=== PATIENT | female | born 1950 | race Caucasian/White ===

== ENCOUNTER 2020-09-01 09:30 | Outpatient (REF) | payer MEDICARE, SELFPAY | END 2020-09-01 09:31 | disposition home or self-care (01) | LOC: HO.LAB 09:30 | PROVIDERS: Visit Provider Internal Medicine | DX: Z20.828 Contact with and (suspected) exposure to other viral communicable diseases (principal) | CPT/HCPCS: 87635 ==

== ENCOUNTER 2020-09-11 07:40 | Outpatient (REF) | payer MEDICARE, SELFPAY ==
[2020-09-11 07:59] LABS: MANUAL DIFF FLAG NO
[2020-09-11 08:01] LABS: Basophils Absolute Auto 0.1 X10*3/uL (0.0-0.2); Basophils Percent Auto 0.7 % (0-2); Eosinophils Absolute Auto 0.1 X10*3/uL (0.0-0.4); Eosinophils Percent Auto 1.4 % (0-4); Hematocrit 39.7 % (37-47); Hemoglobin 12.5 g/dl (12.0-16.0); Imm Gran Abs Auto 0.02 X10*3/uL (0.00-0.03); Imm Gran Pct Auto 0.3 % (0.0-0.4); Lymphocytes Absolute Auto 2.6 X10*3/uL (1.2-4.9); Lymphocytes Percent Auto 35.1 % (20-40); Mean Corpuscular HGB Conc 31.5 g/dl (31.0-35.0); Mean Corpuscular Hemoglobin 27.2 pg (27.0-33.0); Mean Corpuscular Volume 86.3 fL (80-98); Mean Platelet Volume 11.5 fL (9.4-12.3); Monocytes Absolute Auto 0.5 X10*3/uL (0.1-1.2); Monocytes Percent Auto 6.3 % (2-11); Neutrophils Absolute Auto 4.1 X10*3/uL (2.0-8.3); Neutrophils Percent Auto 56.2 % (45-73); Platelet Count 170 X10*3/uL (160-400); Red Cell Distribution Width 12.6 % (11.0-16.0); White Blood Count 7.3 X10*3/uL (4.8-10.8)
[2020-09-11 08:16] LABS: Estimated Average Glucose 117 mg/dL; Hemoglobin A1c % 5.7 %
[2020-09-11 08:32] LABS: Alanine Aminotransferase 38 U/L (0-31); Albumin Level 4.4 g/dL (3.5-5.0); Alkaline Phosphatase 69 U/L (39-117); Anion Gap 15 (12-20); Aspartate Amino Transferase 25 U/L (5-31); Blood Urea Nitrogen 15 mg/dL (9-16); Calcium 8.8 mg/dL (8.4-10.2); Carbon Dioxide 28 mmol/L (22-29); Chloride 102 mmol/L (96-108); Cholesterol 186 mg/dL; Estimated Glomerular Filt Rate > 60; Glucose Fasting 105 mg/dL (60-99); HDL Cholesterol 58 mg/dL; LDL Cholesterol Calculated 105 mg/dl; Sodium 141 mmol/L (135-145); Total Protein 7.2 g/dL (6.5-8.0); Triglycerides 117 mg/dL
[2020-09-11 09:59] LABS: Creatinine Urine 192.14 mg/dL; Microalbum/Creatinine Ratio Ur 6.7 ug/mg cr
== END 2020-09-11 07:41 | disposition home or self-care (01) ==
LOC: HO.LAB 07:40
PROVIDERS: Visit Provider Internal Medicine
DX: Z00.00 Encounter for general adult medical examination without abnormal findings (principal); E11.9 Type 2 diabetes mellitus without complications; E78.00 Pure hypercholesterolemia, unspecified; I10 Essential (primary) hypertension; M76.60 Achilles tendinitis, unspecified leg
CPT/HCPCS: 36415; 80053; 80061; 82043; 83036; 85025

== ENCOUNTER 2020-09-29 07:53 | Outpatient (REF) | payer MEDICARE, SELFPAY | END 2020-09-29 07:54 | disposition home or self-care (01) | LOC: HO.LAB 07:53 | PROVIDERS: Visit Provider Internal Medicine | DX: Z20.828 Contact with and (suspected) exposure to other viral communicable diseases (principal) | CPT/HCPCS: C9803; U0003 ==

== ENCOUNTER 2020-11-04 09:14 | Outpatient (REF) | payer MEDICARE, SELFPAY ==
[2020-11-04 10:32] LABS: Estimated Average Glucose 120 mg/dL; Hemoglobin A1c % 5.8 %
[2020-11-04 10:41] LABS: Alanine Aminotransferase 46 U/L (0-31); Albumin Level 4.2 g/dL (3.5-5.0); Alkaline Phosphatase 65 U/L (39-117); Anion Gap 10 (12-20); Aspartate Amino Transferase 28 U/L (5-31); Blood Urea Nitrogen 9 mg/dL (9-16); Calcium 9.2 mg/dL (8.4-10.2); Carbon Dioxide 33 mmol/L (22-29); Chloride 102 mmol/L (96-108); Estimated Glomerular Filt Rate > 60; Glucose Random 99 mg/dL (60-115); Potassium 4.3 mmol/l (3.3-5.1); Sodium 141 mmol/L (135-145); Total Protein 6.9 g/dL (6.5-8.0)
== END 2020-11-04 09:15 | disposition home or self-care (01) ==
LOC: HO.LAB 09:14
PROVIDERS: PCP Internal Medicine; Visit Provider Internal Medicine
DX: I10 Essential (primary) hypertension (principal); D17.9 Benign lipomatous neoplasm, unspecified; Z68.29 Body mass index [BMI] 29.0-29.9, adult
CPT/HCPCS: 80053; 83036

== ENCOUNTER 2020-11-17 06:49 | Outpatient (REF) | payer MEDICARE, SELFPAY | END 2020-11-17 06:50 | disposition home or self-care (01) | LOC: HO.LAB 06:49 | PROVIDERS: PCP Internal Medicine; Visit Provider Internal Medicine | DX: Z20.822 Contact with and (suspected) exposure to COVID-19 (principal) | CPT/HCPCS: 36415; C9803; U0003 ==

== ENCOUNTER 2020-12-10 10:43 | Outpatient (REF) | payer MEDICARE, SELFPAY | END 2020-12-10 10:44 | disposition home or self-care (01) | LOC: HO.LAB 10:43 | PROVIDERS: Visit Provider Internal Medicine | DX: Z20.822 Contact with and (suspected) exposure to COVID-19 (principal) | CPT/HCPCS: 36415; C9803; U0003; U0005 ==

== ENCOUNTER → 2021-01-08 11:22 | Outpatient (BNVA) | payer MEDICARE, SELFPAY | PROVIDERS: PCP Internal Medicine; Referring Provider Internal Medicine; Visit Provider Dietitian, Registered ==

== ENCOUNTER 2021-02-10 08:03 | Outpatient (REF) | payer MEDICARE, SELFPAY ==
[2021-02-10 10:04] LABS: Alanine Aminotransferase 49 U/L (0-31); Albumin Level 4.1 g/dL (3.5-5.0); Alkaline Phosphatase 64 U/L (39-117); Anion Gap 12 (12-20); Aspartate Amino Transferase 31 U/L (5-31); Carbon Dioxide 31 mmol/L (22-29); Chloride 104 mmol/L (96-108); Estimated Average Glucose 123 mg/dL; Estimated Glomerular Filt Rate > 60; Glucose Random 102 mg/dL (60-115); Hemoglobin A1c % 5.9 %; Potassium 4.2 mmol/L (3.3-5.1); Sodium 143 mmol/L (135-145); Total Protein 6.7 g/dL (6.5-8.0)
[2021-02-10 10:13] LABS: Blood Urea Nitrogen 14 mg/dL (9-16); Calcium 9.1 mg/dL (8.4-10.2)
== END 2021-02-10 08:04 | disposition home or self-care (01) ==
LOC: HO.LAB 08:03
PROVIDERS: PCP Internal Medicine; Visit Provider Internal Medicine
DX: E11.9 Type 2 diabetes mellitus without complications (principal); I10 Essential (primary) hypertension
CPT/HCPCS: 36415; 80053; 83036

== ENCOUNTER → 2021-03-12 12:48 | Outpatient (BNVA) | payer MEDICARE, SELFPAY | PROVIDERS: PCP Internal Medicine; Visit Provider Dietitian, Registered | DX: E11.9 Type 2 diabetes mellitus without complications (principal) | CPT/HCPCS: 97803 ==

== ENCOUNTER → 2021-05-14 11:17 | Outpatient (BNVA) | payer MEDICARE, SELFPAY | PROVIDERS: PCP Internal Medicine; Visit Provider Dietitian, Registered | DX: E11.9 Type 2 diabetes mellitus without complications (principal) | CPT/HCPCS: 97803 ==

== ENCOUNTER 2021-08-19 12:32 | Outpatient (REF) | payer MEDICARE, SELFPAY ==
[2021-08-19 13:40] LABS: COVID-19 Test Negative (Negative)
== END 2021-08-19 12:33 | disposition home or self-care (01) ==
LOC: HO.LAB 12:32
PROVIDERS: PCP Internal Medicine; Visit Provider Internal Medicine
DX: Z20.822 Contact with and (suspected) exposure to COVID-19 (principal)
CPT/HCPCS: 36415; 87635; C9803

== ENCOUNTER → 2021-08-20 12:30 | Outpatient (BNVA) | payer MEDICARE, SELFPAY | PROVIDERS: PCP Internal Medicine; Visit Provider Dietitian, Registered | DX: E11.9 Type 2 diabetes mellitus without complications (principal) | CPT/HCPCS: 97803 ==

== ENCOUNTER 2021-08-30 08:22 | Outpatient (REF) | payer MEDICARE, SELFPAY ==
[2021-08-30 08:39] LABS: MANUAL DIFF FLAG NO
[2021-08-30 09:15] LABS: Basophils Percent Auto 0.5 % (0-2); Eosinophils Absolute Auto 0.1 X10*3/uL (0.0-0.4); Eosinophils Percent Auto 1.2 % (0-4); Hematocrit 37.7 % (37-47); Hemoglobin 12.1 g/dl (12.0-16.0); Imm Gran Abs Auto 0.02 X10*3/uL (0.00-0.03); Imm Gran Pct Auto 0.3 % (0.0-0.4); Lymphocytes Absolute Auto 2.5 X10*3/uL (1.2-4.9); Lymphocytes Percent Auto 38.5 % (20-40); Mean Corpuscular HGB Conc 32.1 g/dl (31.0-35.0); Mean Corpuscular Hemoglobin 27.6 pg (27.0-33.0); Mean Corpuscular Volume 86.1 fL (80-98); Monocytes Absolute Auto 0.5 X10*3/uL (0.1-1.2); Neutrophils Absolute Auto 3.4 X10*3/uL (2.0-8.3); Neutrophils Percent Auto 51.5 % (45-73); Platelet Count 185 X10*3/uL (160-400); Red Blood Count 4.38 X10*6/uL (4.20-5.50); Red Cell Distribution Width 12.3 % (11.0-16.0); White Blood Count 6.6 X10*3/uL (4.8-10.8)
[2021-08-30 09:28] LABS: Estimated Average Glucose 120 mg/dL; Hemoglobin A1c % 5.8 %
[2021-08-30 09:36] LABS: Alanine Aminotransferase 25 U/L (0-31); Albumin Level 4.3 g/dL (3.5-5.0); Alkaline Phosphatase 70 U/L (39-117); Anion Gap 10 (12-20); Aspartate Amino Transferase 19 U/L (5-31); Blood Urea Nitrogen 11 mg/dL (9-16); Calcium 9.6 mg/dL (8.4-10.2); Carbon Dioxide 31 mmol/L (22-29); Chloride 104 mmol/L (96-108); Cholesterol 138 mg/dL; Estimated Glomerular Filt Rate > 60; Glucose Random 112 mg/dL (60-115); HDL Cholesterol 48 mg/dL; LDL Cholesterol Calculated 69 mg/dl; Potassium 4.3 mmol/L (3.3-5.1); Sodium 141 mmol/L (135-145); Total Protein 6.9 g/dL (6.5-8.0); Triglycerides 105 mg/dL
[2021-08-30 09:45] LABS: Creatinine Urine 140.16 mg/dL; Microalbum/Creatinine Ratio Ur 7.1 ug/mg cr
== END 2021-08-30 08:23 | disposition home or self-care (01) ==
LOC: HO.LAB 08:22
PROVIDERS: PCP Internal Medicine; Visit Provider Internal Medicine
DX: E11.9 Type 2 diabetes mellitus without complications (principal); E78.00 Pure hypercholesterolemia, unspecified; I10 Essential (primary) hypertension; S86.011S Strain of right Achilles tendon, sequela
CPT/HCPCS: 36415; 80053; 80061; 82043; 83036; 85025

== ENCOUNTER → 2021-12-10 10:17 | Outpatient (BNVA) | payer MEDICARE, SELFPAY | PROVIDERS: PCP Internal Medicine; Visit Provider Dietitian, Registered | DX: E11.9 Type 2 diabetes mellitus without complications (principal); Z71.3 Dietary counseling and surveillance | CPT/HCPCS: 97803 ==

== ENCOUNTER 2021-12-13 08:35 | Outpatient (REF) | payer MEDICARE, SELFPAY ==
[2021-12-13 09:19] LABS: Estimated Average Glucose 134 mg/dL; Hemoglobin A1c % 6.3 %
[2021-12-13 09:53] LABS: Alanine Aminotransferase 24 U/L (0-31); Albumin Level 4.2 g/dL (3.5-5.0); Alkaline Phosphatase 64 U/L (39-117); Anion Gap 10 (12-20); Aspartate Amino Transferase 22 U/L (5-31); Bilirubin Total 1.1 mg/dL (0.0-1.0); Blood Urea Nitrogen 11 mg/dL (9-16); Calcium 9.7 mg/dL (8.4-10.2); Carbon Dioxide 32 mmol/L (22-29); Chloride 102 mmol/L (96-108); Estimated Glomerular Filt Rate > 60; Glucose Random 123 mg/dL (60-115); Potassium 4.3 mmol/L (3.3-5.1); Sodium 140 mmol/L (135-145)
== END 2021-12-13 08:36 | disposition home or self-care (01) ==
LOC: HO.LAB 08:35
PROVIDERS: PCP Internal Medicine; Visit Provider Internal Medicine
DX: Z00.00 Encounter for general adult medical examination without abnormal findings (principal); E11.9 Type 2 diabetes mellitus without complications; E78.00 Pure hypercholesterolemia, unspecified; I10 Essential (primary) hypertension
CPT/HCPCS: 36415; 80053; 83036

== ENCOUNTER 2022-02-01 08:41 | Outpatient (REF) | payer MEDICARE, SELFPAY ==
[2022-02-01 09:21] LABS: Estimated Average Glucose 126 mg/dL
[2022-02-01 09:39] LABS: Alanine Aminotransferase 27 U/L (0-31); Albumin Level 4.4 g/dL (3.5-5.0); Alkaline Phosphatase 69 U/L (39-117); Anion Gap 11 (12-20); Aspartate Amino Transferase 20 U/L (5-31); Blood Urea Nitrogen 16 mg/dL (9-16); Calcium 9.6 mg/dL (8.4-10.2); Carbon Dioxide 32 mmol/L (22-29); Chloride 102 mmol/L (96-108); Estimated Glomerular Filt Rate > 60; Glucose Random 129 mg/dL (60-115); Sodium 141 mmol/L (135-145); Total Protein 7.2 g/dL (6.5-8.0)
[2022-02-01 10:11] LABS: Vitamin B12 466 pg/mL (200-900)
== END 2022-02-01 08:42 | disposition home or self-care (01) ==
LOC: HO.LAB 08:41
PROVIDERS: PCP Internal Medicine; Visit Provider Internal Medicine
DX: E11.9 Type 2 diabetes mellitus without complications (principal); E78.00 Pure hypercholesterolemia, unspecified; I10 Essential (primary) hypertension
CPT/HCPCS: 36415; 80053; 82607; 83036

== ENCOUNTER 2022-07-08 07:47 | Outpatient (REF) | payer MEDICARE, SELFPAY ==
[2022-07-08 09:09] LABS: Alanine Aminotransferase 43 U/L (0-31); Albumin Level 4.3 g/dL (3.5-5.0); Alkaline Phosphatase 64 U/L (39-117); Anion Gap 13 (12-20); Aspartate Amino Transferase 32 U/L (5-31); Bilirubin Total 0.8 mg/dL (0.0-1.0); Blood Urea Nitrogen 12 mg/dL (9-16); Calcium 9.4 mg/dL (8.4-10.2); Carbon Dioxide 30 mmol/L (22-29); Chloride 103 mmol/L (96-108); Estimated Glomerular Filt Rate > 60; Glucose Random 114 mg/dL (60-115); Potassium 4.4 mmol/L (3.3-5.1); Sodium 142 mmol/L (135-145)
[2022-07-08 09:25] LABS: Estimated Average Glucose 126 mg/dL
== END 2022-07-08 07:48 | disposition home or self-care (01) ==
LOC: HO.LAB 07:47
PROVIDERS: PCP Internal Medicine; Visit Provider Internal Medicine
DX: E11.9 Type 2 diabetes mellitus without complications (principal); I10 Essential (primary) hypertension; R13.10 Dysphagia, unspecified
CPT/HCPCS: 36415; 80053; 83036

== ENCOUNTER 2023-02-16 07:30 | Outpatient (REF) | payer MEDICARE, SELFPAY ==
[2023-02-16 08:17] LABS: Alanine Aminotransferase 21 U/L (0-31); Albumin Level 4.2 g/dL (3.5-5.0); Alkaline Phosphatase 66 U/L (39-117); Anion Gap 12 (12-20); Aspartate Amino Transferase 20 U/L (5-31); Bilirubin Total 1.6 mg/dL (0.0-1.0); Blood Urea Nitrogen 12 mg/dL (9-16); Calcium 9.6 mg/dL (8.4-10.2); Carbon Dioxide 29 mmol/L (22-29); Chloride 105 mmol/L (96-108); Estimated Glomerular Filt Rate > 60; Glucose Random 127 mg/dL (60-115); Potassium 3.9 mmol/L (3.3-5.1); Sodium 142 mmol/L (135-145); Total Protein 6.8 g/dL (6.5-8.0)
[2023-02-16 08:17] LABS: Estimated Average Glucose 128 mg/dL; Hemoglobin A1C 150.2202 umol/L; Hemoglobin A1c % 6.1 %
== END 2023-02-16 07:31 | disposition home or self-care (01) ==
LOC: HO.LAB 07:30
PROVIDERS: PCP Internal Medicine; Visit Provider Internal Medicine
DX: Z00.00 Encounter for general adult medical examination without abnormal findings (principal); E78.00 Pure hypercholesterolemia, unspecified; I10 Essential (primary) hypertension; Z91.148 Patient's other noncompliance with medication regimen for other reason
CPT/HCPCS: 36415; 80053; 83036

== ENCOUNTER 2023-05-16 07:29 | Outpatient (REF) | payer MEDICARE, SELFPAY ==
[2023-05-16 08:34] LABS: Estimated Average Glucose 123 mg/dL; Hemoglobin A1c % 5.9 %
[2023-05-16 09:13] LABS: Alanine Aminotransferase 20 U/L (0-31); Albumin Level 4.1 g/dL (3.5-5.0); Alkaline Phosphatase 65 U/L (39-117); Anion Gap 16 (12-20); Aspartate Amino Transferase 19 U/L (5-31); Bilirubin Total 1.6 mg/dL (0.0-1.0); Blood Urea Nitrogen 15 mg/dL (9-16); Calcium 9.8 mg/dL (8.4-10.2); Carbon Dioxide 26 mmol/L (22-29); Chloride 103 mmol/L (96-108); Cholesterol 171 mg/dL; Estimated Glomerular Filt Rate > 60; Glucose Random 122 mg/dL (60-115); HDL Cholesterol 50 mg/dL; LDL Cholesterol Calculated 98 mg/dl; Potassium 3.7 mmol/L (3.3-5.1); Sodium 141 mmol/L (135-145); Triglycerides 119 mg/dL
== END 2023-05-16 07:30 | disposition home or self-care (01) ==
LOC: HO.LAB 07:29
PROVIDERS: PCP Internal Medicine; Visit Provider Internal Medicine
DX: E11.9 Type 2 diabetes mellitus without complications (principal); E78.00 Pure hypercholesterolemia, unspecified; I10 Essential (primary) hypertension
CPT/HCPCS: 36415; 80053; 80061; 83036

== ENCOUNTER 2023-08-14 08:49 | Outpatient (REF) | payer MEDICARE, SELFPAY | END 2023-08-14 08:50 | disposition home or self-care (01) | LOC: HO.LAB 08:49 | PROVIDERS: PCP Internal Medicine; Visit Provider Internal Medicine | DX: E11.9 Type 2 diabetes mellitus without complications (principal); E78.00 Pure hypercholesterolemia, unspecified; I10 Essential (primary) hypertension; R14.0 Abdominal distension (gaseous) | CPT/HCPCS: 36415; 80061; 83036 ==

== ENCOUNTER 2023-12-05 07:44 | Outpatient (REF) | payer MEDICARE, SELFPAY ==
[2023-12-05 08:00] LABS: MANUAL DIFF FLAG NO
[2023-12-05 08:34] LABS: Basophils Absolute Auto 0.1 X10*3/uL (0.0-0.2); Basophils Percent Auto 0.7 % (0-2); Eosinophils Absolute Auto 0.1 X10*3/uL (0.0-0.4); Eosinophils Percent Auto 1.1 % (0-4); Hematocrit 38.4 % (37.0-47.0); Hemoglobin 12.6 g/dl (12.0-16.0); Imm Gran Abs Auto 0.02 X10*3/uL (0.00-0.03); Imm Gran Pct Auto 0.3 % (0.0-0.4); Mean Corpuscular HGB Conc 32.8 g/dl (31.0-35.0); Mean Corpuscular Hemoglobin 27.6 pg (27.0-33.0); Mean Platelet Volume 11.8 fL (9.4-12.3); Monocytes Absolute Auto 0.6 X10*3/uL (0.1-1.2); Monocytes Percent Auto 8.2 % (2-11); Neutrophils Absolute Auto 3.8 x10*3/uL (2.0-8.3); Neutrophils Percent Auto 49.7 % (45-73); Platelet Count 186 X10*3/uL (160-400); Red Blood Count 4.57 X10*6/uL (4.20-5.50); Red Cell Distribution Width 12.6 % (11.0-16.0); White Blood Count 7.5 X10*3/uL (4.8-10.8)
[2023-12-05 08:42] LABS: Estimated Average Glucose 123 mg/dL; Hemoglobin A1c % 5.9 % (<6.0)
[2023-12-05 09:17] LABS: Alanine Aminotransferase 16 U/L (0-31); Albumin Level 4.1 g/dL (3.5-5.0); Alkaline Phosphatase 67 U/L (39-117); Anion Gap 11 (12-20); Aspartate Amino Transferase 15 U/L (5-31); Bilirubin Total 1.3 mg/dL (0.0-1.0); Blood Urea Nitrogen 16 mg/dL (9-16); Calcium 9.7 mg/dL (8.4-10.2); Carbon Dioxide 31 mmol/L (22-29); Chloride 104 mmol/L (96-108); Estimated Glomerular Filt Rate > 60; Glucose Random 116 mg/dL (60-115); Potassium 3.8 mmol/L (3.3-5.1); Sodium 142 mmol/L (135-145)
[2023-12-05 09:30] LABS: Creatinine Urine 78.66 mg/dL; Microalbum/Creatinine Ratio Ur 7.6 ug/mg cr (<30)
== END 2023-12-05 07:45 | disposition home or self-care (01) ==
LOC: HO.LAB 07:44
PROVIDERS: PCP Internal Medicine; Visit Provider Internal Medicine
DX: E11.9 Type 2 diabetes mellitus without complications (principal); I10 Essential (primary) hypertension; E78.00 Pure hypercholesterolemia, unspecified; M25.511 Pain in right shoulder
CPT/HCPCS: 36415; 80053; 82043; 82306; 82570; 83036; 85025

== ENCOUNTER 2024-04-29 09:36 | Outpatient (REF) | payer MEDICARE, SELFPAY ==
[2024-04-29 11:16] LABS: Estimated Average Glucose 128 mg/dL; Hemoglobin A1c % 6.1 % (<6.0)
[2024-04-29 11:38] LABS: Alanine Aminotransferase 21 U/L (0-31); Albumin Level 4.4 g/dL (3.5-5.0); Alkaline Phosphatase 63 U/L (39-117); Anion Gap 16 (12-20); Aspartate Amino Transferase 20 U/L (5-31); Bilirubin Total 1.3 mg/dL (0.0-1.0); Blood Urea Nitrogen 13 mg/dL (9-16); Calcium 9.9 mg/dL (8.4-10.2); Carbon Dioxide 32 mmol/L (22-29); Chloride 101 mmol/L (96-108); Cholesterol 158 mg/dL (<200); Estimated Glomerular Filt Rate > 60; Glucose Random 108 mg/dL (60-115); HDL Cholesterol 53 mg/dL (>40); LDL Cholesterol Calculated 85 mg/dL (<100); Potassium 4.3 mmol/L (3.3-5.1); Sodium 145 mmol/L (135-145); Total Protein 7.6 g/dL (6.5-8.0); Triglycerides 104 mg/dL (<150)
== END 2024-04-29 09:37 | disposition home or self-care (01) ==
LOC: HO.LAB 09:36
PROVIDERS: PCP Internal Medicine; Visit Provider Internal Medicine
DX: Z00.00 Encounter for general adult medical examination without abnormal findings (principal); E11.9 Type 2 diabetes mellitus without complications; E78.00 Pure hypercholesterolemia, unspecified; I10 Essential (primary) hypertension
CPT/HCPCS: 36415; 80053; 80061; 83036

== ENCOUNTER 2024-09-02 08:55 | Outpatient (REF) | payer MEDICARE, SELFPAY ==
[2024-09-02 11:07] LABS: Estimated Average Glucose 128 mg/dL; Hemoglobin A1C 141.6099 umol/L; Hemoglobin A1c % 6.1 % (<6.0); Total Hemoglobin (HGBA1C) 3306.0918 umol/L
[2024-09-02 12:16] LABS: Alanine Aminotransferase 24 U/L (0-31); Albumin Level 4.3 g/dL (3.5-5.0); Alkaline Phosphatase 64 U/L (39-117); Anion Gap 7 (12-20); Aspartate Amino Transferase 22 U/L (5-31); Bilirubin Total 1.1 mg/dL (0.0-1.0); Blood Urea Nitrogen 15 mg/dL (9-16); Calcium 9.1 mg/dL (8.4-10.2); Carbon Dioxide 32 mmol/L (22-29); Chloride 106 mmol/L (96-108); Cholesterol 173 mg/dL (<200); Estimated Glomerular Filt Rate > 60; Glucose Random 111 mg/dL (60-115); HDL Cholesterol 50 mg/dL (>40); LDL Cholesterol Calculated 104 mg/dL (<100); Potassium 3.8 mmol/L (3.3-5.1); Sodium 141 mmol/L (135-145); Total Protein 7.1 g/dL (6.5-8.0); Triglycerides 97 mg/dL (<150)
== END 2024-09-02 08:56 | disposition home or self-care (01) ==
LOC: HO.10HDL 08:55
PROVIDERS: Visit Provider Internal Medicine
DX: E11.9 Type 2 diabetes mellitus without complications (principal); E78.00 Pure hypercholesterolemia, unspecified; G47.33 Obstructive sleep apnea (adult) (pediatric); I10 Essential (primary) hypertension; R21 Rash and other nonspecific skin eruption
CPT/HCPCS: 36415; 80053; 80061; 83036

== ENCOUNTER 2024-12-27 21:23 | Emergency (ER) | payer MEDICARE, SELFPAY ==
[2024-12-27 21:31] VITALS: BP 190/81; PULSE 92; RESP 18; TEMP 36.9; O2SAT 99; BMI 31.8
[2024-12-27 22:16] LABS: IDNOW Serial# 6674DD1D; Strep A Nucleic Acid Negative (Negative)
== END 2024-12-27 23:26 | disposition left against medical advice (07) ==
PROVIDERS: Emergency Provider Emergency Medicine; PCP Internal Medicine
DX: R09.89 Other specified symptoms and signs involving the circulatory and respiratory systems (principal)
CPT/HCPCS: 87651; 99281

== ENCOUNTER 2024-12-30 08:54 | Outpatient (REF) | payer MEDICARE, SELFPAY ==
[2024-12-30 11:08] LABS: Estimated Average Glucose 128 mg/dL; Hemoglobin A1C 142.2697 umol/L; Hemoglobin A1c % 6.1 % (<6.0); Total Hemoglobin (HGBA1C) 3288.3457 umol/L
[2024-12-30 11:53] LABS: Alanine Aminotransferase 25 U/L (0-31); Albumin Level 4.3 g/dL (3.5-5.0); Alkaline Phosphatase 59 U/L (39-117); Anion Gap 11 (12-20); Aspartate Amino Transferase 23 U/L (5-31); Bilirubin Total 1.1 mg/dL (0.0-1.0); Blood Urea Nitrogen 18 mg/dL (9-16); Calcium 9.5 mg/dL (8.4-10.2); Carbon Dioxide 31 mmol/L (22-29); Chloride 105 mmol/L (96-108); Estimated Glomerular Filt Rate > 60; Glucose Random 122 mg/dL (60-115); Potassium 3.7 mmol/L (3.3-5.1); Sodium 143 mmol/L (135-145); Total Protein 7.5 g/dL (6.5-8.0)
[2024-12-30 12:23] LABS: Creatinine Urine 196.39 mg/dL; Microalbum/Creatinine Ratio Ur 7.1 ug/mg cr (<30)
== END 2024-12-30 08:55 | disposition home or self-care (01) ==
LOC: HO.10HDL 08:54
PROVIDERS: Visit Provider Internal Medicine
DX: E78.00 Pure hypercholesterolemia, unspecified (principal); I10 Essential (primary) hypertension; M77.11 Lateral epicondylitis, right elbow; Z68.31 Body mass index [BMI] 31.0-31.9, adult; Z13.1 Encounter for screening for diabetes mellitus
CPT/HCPCS: 36415; 80053; 82043; 82570; 83036

== ENCOUNTER 2025-02-11 21:31 | Emergency (ER) | payer MEDICARE, SELFPAY ==
--- NOTE | 2025-02-11 | ECG_ITS ---
Test Reason : BACK PAIN Blood Pressure : */* mmHG Vent. Rate : 67 BPM Atrial Rate : 67 BPM P-R Int : 148 ms QRS Dur : 92 ms QT Int : 398 ms P-R-T Axes : 32 -5 8 degrees QTcB Int : 420 ms Normal sinus rhythm with sinus arrhythmia Moderate voltage criteria for LVH, may be normal variant ( R in aVL , [place] product ) Borderline ECG When compared with ECG of 29-Jan-2018 21:23, T wave inversion no longer evident in Anterior leads Referred By: Generic ED Physician Electronically Signed By: Ramiro Stanton
--- NOTE | ~2025-02-11 | XR_ITS ---
CLINICAL HISTORY: Left upper dorsal back pain 3 view left ribs Comparison: None Findings: Bones intact. No dislocations. The lungs are unremarkable. IMPRESSION: 1. No acute findings This document has been electronically signed by: Andres Nash MD on 02/12/2025 00:01:21
--- NOTE | ~2025-02-11 | XR_ITS ---
CLINICAL HISTORY: upper mid back pain 2 view chest x-ray Comparison: None Findings: The lungs are clear. Heart size is normal. No acute fracture. IMPRESSION: 1. No acute findings. This document has been electronically signed by: Andres Nash MD on 02/11/2025 22:51:23
[2025-02-11 21:32] VITALS: BP 159/62; PULSE 83; RESP 18; TEMP 36.4; O2SAT 96; BMI 31.7
--- NOTE | 2025-02-11 21:38 | PC.NURSE ---
Barbie ECHAVARRIA consulted regarding pt sx and ?labs/imaging etc. pt appears in nad, currently in wr awaiting bed availability.
--- NOTE | 2025-02-11 21:55 | PC.NURSE ---
ekg/labs/imaging ordered per Barbie ECHAVARRIA verbal order.
[2025-02-11 22:07] LABS: MANUAL DIFF FLAG NO
[2025-02-11 22:25] LABS: Alanine Aminotransferase 21 U/L (0-31); Albumin Level 4.1 g/dL (3.5-5.0); Alkaline Phosphatase 65 U/L (39-117); Anion Gap 11 (12-20); Aspartate Amino Transferase 24 U/L (5-31); Bilirubin Total 1.1 mg/dL (0.0-1.0); Blood Urea Nitrogen 18 mg/dL (9-16); Calcium 9.3 mg/dL (8.4-10.2); Carbon Dioxide 27 mmol/L (22-29); Chloride 107 mmol/L (96-108); Creatinine Clr Calc Pharmacy 64.4; Estimated Glomerular Filt Rate > 60; Glucose Random 122 mg/dL (60-115); Potassium 3.7 mmol/L (3.3-5.1); Sodium 141 mmol/L (135-145); Total Protein 6.7 g/dL (6.5-8.0)
[2025-02-11 22:32] LABS: Troponin-I High Sensitivity < 2.7 ng/L (<3.5-17.0)
[2025-02-11 22:45] LABS: Basophils Percent Auto 0.5 % (0-2); Eosinophils Absolute Auto 0.1 X10*3/uL (0.0-0.4); Eosinophils Percent Auto 1.3 % (0-4); Hematocrit 36.8 % (37.0-47.0); Hemoglobin 12.3 g/dl (12.0-16.0); Imm Gran Abs Auto 0.02 X10*3/uL (0.00-0.03); Imm Gran Pct Auto 0.3 % (0.0-0.4); Lymphocytes Absolute Auto 3.3 X10*3/uL (1.2-4.9); Lymphocytes Percent Auto 42.1 % (20-40); Mean Corpuscular HGB Conc 33.4 g/dl (31.0-35.0); Mean Corpuscular Hemoglobin 27.8 pg (27.0-33.0); Mean Corpuscular Volume 83.1 fL (80.0-98.0); Mean Platelet Volume 11.2 fL (9.4-12.3); Monocytes Absolute Auto 0.7 X10*3/uL (0.1-1.2); Monocytes Percent Auto 8.5 % (2-11); Neutrophils Absolute Auto 3.8 x10*3/uL (2.0-8.3); Neutrophils Percent Auto 47.3 % (45-73); Platelet Count 176 X10*3/uL (160-400); Red Blood Count 4.43 X10*6/uL (4.20-5.50); Red Cell Distribution Width 12.4 % (11.0-16.0); White Blood Count 7.9 X10*3/uL (4.8-10.8)
--- NOTE | 2025-02-11 23:22 | ED.BACK ---
HPI - Back Pain/Injury General Chief Complaint: Back Pain/Injury Stated Complaint: Back pain Time Seen by Provider: 02/11/25 23:10 Source: patient and family () Mode of arrival: ambulatory Limitations: no limitations History of Present Illness ED Provider: DR. Santiago HPI Narrative: 74-year-old female came in for evaluation of left mid upper back pain started since early this morning, patient declined any injury or fall, no fever, no chills, no recent travel, no shortness of breath, pain is localized to the upper back to the left side, no recent travel, no lower extremity swelling or tenderness, no fever, no chills, no cough, no chest pain, pain has been constant since this morning, patient is applying [id number] pain ointment with no relief. Related Data Home Medications ?Medication ?Instructions ?Recorded ?Confirmed losartan 50 mg-hydrochlorothiazide 1 tab PO DAILY 05/18/21 08/20/21 12.5 mg tablet mecobalamin (vitamin B12) 1,000 1,000 mcg PO DAILY 05/18/21 08/20/21 mcg chewable tablet (B12 Active) metformin 500 mg tablet,extended 500 mg PO BID 05/18/21 08/20/21 release 24 hr omega-3 fatty acids 1,000 mg 1,000 mg PO DAILY 05/18/21 08/20/21 capsule cholecalciferol (vitamin D3) 25 25 mcg PO DAILY 08/20/21 08/20/21 mcg (1,000 unit) capsule nortriptyline 25 mg capsule 25 mg PO DAILY 08/20/21 08/20/21 Previous Rx's ?Medication ?Instructions ?Recorded cyclobenzaprine 10 mg tablet 10 mg PO TID PRN muscle spasm #10 02/11/25 tabs ibuprofen 600 mg tablet 600 mg PO Q8H PRN pain #14 tabs 02/11/25 Allergies Allergy/AdvReac Type Severity Reaction Status Date / Time atorvastatin AdvReac Unknown myalgia Verified 02/11/25 21:35 atorvastatin Allergy Unknown myalgia Uncoded 02/11/25 21:35 metformin Allergy Unknown diarrhea Uncoded 02/11/25 21:35 Review of Systems Review of Systems: All other systems are reviewed and are negative Constitutional: Reports as per HPI and Reports no additional constitutional complaints Eyes: Reports as per HPI and Reports no additional eye complaints Reports system reviewed and no additional complaints, except as documented Cardiovascular: Reports as per HPI and Reports no additional cardiovascular complaints Respiratory: Reports as per HPI and Reports no additional respiratory complaints Gastrointestinal: Reports as per HPI and Reports no additional gastrointestinal complaints Genitourinary: Reports no additional female genitourinary complaints Musculoskeletal: Reports no additional musculoskeletal complaints Skin/Breast: Reports system reviewed and no additional complaints, except as docu Psychiatric: Reports no additional psychiatric complaints Endocrine: Reports no additional endocrine complaints Hematologic/Lymphatic: Reports no additional hematologic/lymphatic complaints Allergic/Immunologic: Reports no additional allergic/immunologic complaints Reports system reviewed and no additional complaints, except as documented and Reports Abnormal speech present [facility] Past Medical History Medical History Hard of hearing Seasonal allergies High cholesterol Schatzki's ring Hiatal hernia GERD (gastroesophageal reflux disease) HTN (hypertension) Social History Social History Smoked in Last 30 Days: No Use of substances other than those prescribed or required for medical reasons: No Advance Directives: No Advance Directives Information Provided: Yes Do you have a plan to hurt others: No Plan Physical Exam Vital Signs: Vital Signs: Last Vital Signs Temp 97.6 F 02/11/25 23:49 Pulse 62 02/11/25 23:49 Resp 16 02/11/25 23:49 BP 152/62 H 02/11/25 23:49 Pulse Ox 97 02/11/25 23:49 O2 Del Method Room Air 02/11/25 23:49 BMI result Body Mass Index 31.7 Vital signs have been reviewed and appear to be correct. Blood pressure elevated. Heart rate normal. Respiratory rate normal. Temperature normal. Oxygen saturation normal. Appearance: Alert. Oriented X3. No acute distress. Head: Normal external exam. Normocephalic. Atraumatic. No Colvin signs noted. No raccoon eyes noted Eyes: PERRLA. EOMI. Conjunctiva and sclera normal. Eyelids normal. ENT: TM's Normal. Pharynx normal. Uvula midline. Moist mucous membranes. No trismus noted. No drooling noted. No muffled voice noted. Neck: Normal inspection. Neck supple. FROM. No adenopathy. Thyroid Normal. No meningeal signs. No neck mass noted. CVS: Normal heart rate and rhythm. Heart sound normal. No murmurs noted. Pulses normal throughout. Respiratory: No respiratory distress. Painless inspiration. Breath sounds normal. No wheezes/rales/rhonchi noted. Chest nontender. No accessory muscle usage noted or decreased air movement noted. Abdomen: Soft and nontender. Bowel sounds normal in all 4 quadrants. No distention noted. No organomegaly noted. No visible injury noted. Back: No CVA tenderness. Full range of motion noted. Skin: Skin warm and dry. Normal skin color. Normal skin turgor. No rashes/lesions/lacerations noted. Extremities: No lower extremity edema. Extremities exhibit normal range of motion. Extremities nontender. Neuro: Oriented X 3. Cranial nerve exam: II-XII are grossly intact No motor deficit. No sensory deficit. Reflexes normal. Course Reevaluation(s) Reevaluation #1: Patient feels better after ibuprofen, appeared to be muscular pain, negative x-ray per rib fracture or pneumonia unremarkable troponin and D-dimer with no risk for PE. VSS with normal O2 sat. Time: 01:00 Medications Administered Discontinued Medications Generic Name Dose Route Start Last Admin Trade Name Freq PRN Reason Stop Dose Admin Ibuprofen 600 mg 02/11/25 23:17 02/11/25 23:54 Ibuprofen 600 Mg Tablet PO 02/11/25 23:18 600 mg ONCE ONE Administration Medical Decision Making Differential Diagnosis Differential Diagnoses: The differential diagnosis associated with the presentation includes (Rib fracture, muscular pain, pneumonia, pneumothorax, pleural effusion, less likely ACS, less likely pulmonary embolism.) Admission/Observation Consideration of admission/observation: Escalation of care including admission/observation considered Lab Data MDM Lab Attestation statement: I reviewed the patient's lab results. 02/11/25 22:02 02/11/25 22:02 Labs: Lab Results 02/11/25 02/11/25 Range/Units 22:02 23:25 WBC 7.9 (4.8-10.8) X10*3/uL RBC 4.43 (4.20-5.50) X10*6/uL Hgb 12.3 (12.0-16.0) g/dl Hct 36.8 L (37.0-47.0) % MCV 83.1 (80.0-98.0) fL MCH 27.8 (27.0-33.0) pg MCHC 33.4 (31.0-35.0) g/dl RDW 12.4 (11.0-16.0) % Plt Count 176 (160-400) X10*3/uL MPV 11.2 (9.4-12.3) fL Immature Gran % (Auto) 0.3 (0.0-0.4) % Neut % (Auto) 47.3 (45-73) % Lymph % (Auto) 42.1 H (20-40) % [facility] [place] [facility] % (Auto) 8.5 (2-11) % Eos % (Auto) 1.3 (0-4) % Baso % (Auto) 0.5 (0-2) % Lymph # (Auto) 3.3 (1.2-4.9) X10*3/uL [facility] # (Auto) 0.7 (0.1-1.2) X10*3/uL Eos # (Auto) 0.1 (0.0-0.4) X10*3/uL Baso # (Auto) 0.0 (0.0-0.2) X10*3/uL Abs Immat Gran (auto) 0.02 (0.00-0.03) X10*3/uL Absolute Neuts (auto) 3.8 (2.0-8.3) x10*3/uL Absolute Nucleated RBC 0.000 (0.0-0.012) X10*3/uL Nucleated RBC % (auto) 0.0 (0.0-0.2) /100WBC D-Dimer High Sensitivty < 150 NG/ML Sodium 141 (135-145) mmol/L Potassium 3.7 (3.3-5.1) mmol/L Chloride 107 (96-108) mmol/L Carbon Dioxide 27 (22-29) mmol/L Anion Gap 11 L (12-20) BUN 18 H (9-16) mg/dL Creatinine 0.72 (0.5-1.4) mg/dL Estim Creat Clear Calc 64.4 Estimated GFR > 60 Random Glucose 122 H (60-115) mg/dL Calcium 9.3 (8.4-10.2) mg/dL Total Bilirubin 1.1 H (0.0-1.0) mg/dL AST 24 (5-31) U/L ALT 21 (0-31) U/L Alkaline Phosphatase 65 (39-117) U/L Troponin I High Sens < 2.7 < 2.7 (<3.5-17.0) ng/L Total Protein 6.7 (6.5-8.0) g/dL Albumin 4.1 (3.5-5.0) g/dL Independent Interpretation I performed an independent interpretation of an: Plain X-Ray (Chest/left ribs: No acute findings.) Radiology Impression Discussion of test interpretation with radiology: I have reviewed the radiologist's reading. Discharge Plan Discharge Clinical Impression: Dorsal back pain Patient Disposition: Home, Self-Care Instructions: Back Pain (ED) Prescriptions: New ibuprofen 600 mg tablet 600 mg PO Q8H PRN (Reason: pain) Qty: 14 0RF cyclobenzaprine 10 mg tablet 10 mg PO TID PRN (Reason: muscle spasm) Qty: 10 0RF No Action cholecalciferol (vitamin D3) 25 mcg (1,000 unit) capsule 25 mcg PO DAILY nortriptyline 25 mg capsule 25 mg PO DAILY metformin 500 mg tablet extended release 24 hr 500 mg PO BID omega-3 fatty acids 1,000 mg capsule 1,000 mg PO DAILY B12 Active 1,000 mcg tablet,chewable 1,000 mcg PO DAILY losartan-hydrochlorothiazide 50-12.5 mg tablet 1 tab PO DAILY Referrals: Renetta Larsen MD [Primary Care Provider] - Print Language: Greenlandic
[2025-02-11 23:49] VITALS: BP 152/62; PULSE 62; RESP 16; TEMP 36.4; O2SAT 97
[2025-02-11 23:51] LABS: Troponin-I High Sensitivity < 2.7 ng/L (<3.5-17.0)
[2025-02-11 23:54] LABS: D Dimer High Sensitivity < 150 NG/ML
[2025-02-11] MEDS: Ibuprofen 600 MG TABLET PO (23:54)
--- OUTSIDE RECORDS SUMMARY | 2025-02-12 00:07 | XMS_ITS | Continuity of Care Document ---
Author Organization [facility] Address [address] [place] [address] Phone Care Team Providers Care Material Loader Name Role Phone Eh Crawford MD Unavailable Unavailable Medications Medication Instructions Dosage Effective Dates (start - stop) Status Comments enalapril maleate 10 mg Tab 10 MG - Active Pepcid 20 mg Tab 20 MG - Active Procedures Procedure Date Init Inpt Cons New/estab Mod 5 11 Consult, Level IV / Office Diagnostic Fiberoptic Laryngoscopy Advance Directives Directive Yes / No Effective Date File Name No Information Encounters Encounter Description Practice Location Reason(s) For Visit Diagnoses Date Provider Providers Copied on Encounter [facility], [address], [place], [place], [id number] , [place] tel: [phone] [facility] No Information 1 Ty Stauffer. [address], [id number] , [place]. tel: [phone] Init Inpt Cons New/estab Mod 5 [facility], [address], [place], [place], [id number] , [place] tel: [phone] [facility] No Information 1 Ty Stauffer. [address], [id number] , [place]. tel: [phone] Referring Provider: Chun Rodriguez, [facility] [place], [address]. tel:[phone] Consult, Level IV / Office [facility], [address], [place], [place], [id number] , [place] tel:[phone] [facility] Neck Mass (chief complaint) Reflux (chief complaint) SialoadenitisSialo lithiasisReflux Esophagitis Jan-0 8201 1 Ty Stauffer. [address] [place] [address], [address], [place], [place], [id number] , [place]. tel:[phone] Referring Provider: Chun Rodriguez, [address] [facility], [place], [address]. tel:[phone] Family History Family Member Type Diagnosis Age At Onset No Information Payers Payer name Insurance type Covered green party ID Authoriza tyree(s) [facility] EPO - PPO CI [id number] Social History Type Description Quantity Date Captured Comments Sex Female Smoking Status No Information Chief Complaint And Reason For Visit No Information Reason For Referral Reason For Referral No Information History Of Present Illness Encounter Date Complaint History Of Prese nt Illness No Information Functional Status Date Functional Assessmen t No Information Instructions Date Instruction Additional Infor mation No Information Assessments Type Assessment Date No Information Patient Care Teams Name Effective Dates (start - stop) Status Members No Information
--- OUTSIDE RECORDS SUMMARY | 2025-02-12 00:07 | XMS_ITS | Clinical Summary ---
Author Organization [facility] [address] [facility] Address [address] [place] [address] Phone Care Team Providers Care Any Commodity Sales Deliverer Name Role Phone Renetta Mccoy MD Primary Care Provider [phone] Allergies Active Allergy Reactions Criticality Noted Date Comments Atorvastatin Low 12/31/2024 Metformin Low 12/31/2024 Medications aspirin 81 mg EC tablet Take 1 tablet (81 mg total) by mouth 1 (one) time each day. 5 Active losartan-hydroC HLOROthiazide (HYZAAR) 100-25 mg per tablet Take 1 tablet by mouth 1 (one) time each day. 4 Active rosuvastatin (CRESTOR) 10 mg tablet Take 2 tablets (20 mg total) by mouth 1 (one) time each day. 5 Active clotrimazole (LOTRIMIN) 1 % cream APPLY TO RASH TWICE A DAY 4 Active ezetimibe (ZETIA) 10 mg tablet Take 1 tablet (10 mg total) by mouth 1 (one) time each day. 5 Active triamcinolone (KENALOG) 0.1 % cream APPLY EXTERNALLY TO THE AFFECTED AREA 3 TIMES DAILY 4 Active docusate sodium (COLACE) 100 mg capsule Take 1 capsule (100 mg total) by mouth 2 (two) times a day. Active coenzyme Q-10 30 mg capsule Take 400 mg by mouth 1 (one) time each day. Active fluticasone propionate (FLONASE) 50 mcg/actuation nasal spray 2 Sprays by Each Nare route daily Active metFORMIN (FORTAMET) 500 mg 24 hr tablet Take 1 tablet (500 mg total) by mouth 1 (one) time each day with dinner. Active BERBERINE CHLORIDE ORAL Take by mouth. 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/27/2018 Dysphagia 12/27/2018 Encounters Date Type Department Care Team Description 01/22/2025 1:45 PM EDT Office Visit Gastroenterology [facility] [address] [place] [address] Vu Hall MD Esophageal dysphagia (Primary Dx) 12/31/2024 Telephone Gastroenterology [facility] [address] [place] [address] Kristi Seth MD Special Procedure from Last 3 Months Surgical History Surgery Date Site/Laterality Comments OTHER SURGICAL HISTORY PROCEDURE: HYSTEROSCOPY, DIAGNOSTIC Medical History Medical History Date Comments HTN (hypertension) DX:HTN (hyper tension) Hyperlipemia DX:Hyperlipemia Diabetes (CMS/HCC) DX:Diabetes ( HCC) Migraines DX:Migraines Fibroid tumor DX:Fibroid tumor ; COMMENT: with removal Family History Medical History Relation Name Comments Hypertension Father Diabetes Mother Hypertension Mother Other: hyperlipidemia Mother Relation Name Status Comments Father Mother Social History Tobacco Use Types Packs/Day Years Used Date Smoking Tobacco: Former Cigarettes Q uit: 01/20/1982 Smokeless Tobacco: Never Alcohol Use Standard Drinks/Week Comments No 0 (1 standard drink = 0.6 oz pur e alcohol) Comments Unknown Sex and Gender Information Value Date Recorded Sex Assigned at Female 01/27/2025 4:12 PM EDT Legal Sex Female 2:17 AM EST Gender Identity Female 01/27/2025 4:12 PM EDT Sexual Orientation Straight 01/27/2025 4: 16 PM EDT Obstetrics History Last Filed Vital Signs Vital Sign Reading Time Taken Comments Blood Pressure 122/72 01/22/2025 2:17 PM EDT Pulse 70 01/22/2025 2:17 PM EDT Temperature - - Respiratory Rate - - Oxygen Saturation - - Inhaled Oxygen Concentration - - Weight 77.6 kg (171 lb) 01/22/2025 2:17 PM EDT Height 157.5 cm (5' 2 ) 01/22/2025 2:17 PM EDT Body Mass Index 31.28 01/22/2025 2:17 PM EDT Plan of Treatment Upcoming Encounters Date Type Department Care Team (Late st Contact Info) Description 04/01/2025 8:00 AM EDT Appointment [facility] Xray [address] [place] [address] Health Maintenance Due Date Last Done Comments Diabetes: Annual GFR (Glomerular Filtration Rate) 1950 Diabetes: Annual Foot Exam 1958 Diabetes: Annual Retina Eye Exam 1960 DTaP,Tdap,and Td Vaccines (1 - Tdap) 1967 Zoster Vaccines (1 of 2) 1998 Cholesterol Screening (Lipid Panel) 10/15/2022 Depression Screening 10/15/2022 Falls Risk Assessment 10/15/2022 Hepatitis C Screening 10/15/2022 Medicare Annual Wellness Visit 10/15/2022 Osteoporosis Screening (Bone Density Screening) 10/15/2022 Social Influencers of Health Screening 10/15/2022 Diabetes: Annual Urine Albumin-Creatinine Ratio (uACR) 10/21/2022 Diabetes: Blood Sugar Control Test (HGBA1C) 10/21/2022 RSV Immunization Adult Patients (1 - 1-dose 75+ series) 2023 COVID-19 Vaccine ( season) 2024 09/20/2021, 05/11/2021, 02/10/2021 Influenza Vaccine (#1) 2024 08/15/2023, 2020 Pneumococcal Vaccine: 50+ Years Completed 11/28/2018, 04/27/2017 Breast Cancer Screening Discontinued 11/02/20, 10/28/2022, 10/18/2021, Additional history exists HIB Vaccines Aged Out No longer eligi ble based on patient's age to complete this topic HPV Vaccines Aged Out No longer eligi ble based on patient's age to complete this topic Hepatitis A Vaccines Aged Out No long er eligible based on patient's age to complete this topic Hepatitis B Vaccines Aged Out No long er eligible based on patient's age to complete this topic IPV Vaccines Aged Out No longer eligi ble based on patient's age to complete this topic MMR Vaccines Aged Out No longer eligi ble based on patient's age to complete this topic Meningococcal ACWY Vaccine Aged Out N o longer eligible based on patient's age to complete this topic Meningococcal B Vaccine Aged Out No l onger eligible based on patient's age to complete this topic RSV Immunization Patients Under 20 months Aged Out No longer eligible based on patient's age to complete this topic Varicella Vaccines Aged Out No longer eligible based on patient's age to complete this topic Procedures Procedure Name Priority Date/Time Associated Diagnosis Comments [facility] SCREENING DIGITAL Routine 11/02/2023 4:03 PM EST Encounter for screening mammogram for malignant neoplasm of breast from Last 3 Months or Most Recently Relevant to Health Maintenance Results * [facility] SCREENING DIGITAL (11/02/2023 4:03 PM EST) Anatomical Region Laterality Modality Mammography 11/02/2023 10:2 8 AM EST Narrative 11/02/2023 4:03 PM EST [facility] Diagnostic Imaging Department [address] [place] [address] Patient: ??DEB DA SILVA ?/Age/Sex: 1950 - 72 - F Unit#: ??[id number] ? Location/Status: ??SPDIMAM/REG CLI ? Mnemonic/Ordering Site: ??DIGSC/SPMAM Ordering Physician: ??RENETTA MCCOY MD [facility] Screening Digital - 11/02/23 - 1057 Report Status:Signed EXAM: [facility] Screening Digital EXAM DATE AND TIME: 11/02/2023 10:57 AM HISTORY: ??Screening. Sister had breast carcinoma age 64. COMPARISON: ??10/28/22, 10/18/21, 05/28/20 TECHNIQUE: Bilateral digital breast tomosynthesis was performed in the CC and MLO projections. Computer aided detection with VisualDNA 3D 3.1 was employed. TISSUE DENSITY: a. The breasts are almost entirely fatty. FINDINGS: No suspicious masses, grouped microcalcifications, or areas of architectural distortion are seen. Vascular calcification is present. The skin is unremarkable. IMPRESSION: Stable mammographic appearance of the breasts. ??No evidence of malignancy is seen. A negative mammogram in the presence of a clinically suspicious palpable abnormality does not preclude the possibility of malignancy or alter the indications for biopsy. BI-RADS: ??Category 2: Benign RECOMMENDATION(S): 1: Routine screening mammogram BILATERAL in 1 year. Dictating Physician: ??ENMA MARCUM MD Electronically Signed by: ??ENMA MARCUM MD Dic Date/Time: ??11/02/23 1602 Sign date/Time: ??11/02/23 1603 Procedure Note Enma Marcum MD - 12/12/2023 [facility] Diagnostic Imaging Department [address] [place] [address] Patient: DEB DA SILVA/Age/Sex: 1950 - 72 - F Unit#: [id number] Location/Status: [facility] CLI Mnemonic[facility] Ordering Physician: RENETTA MCCOY MD [facility] Screening Digital - 11/02/23 - 1057 Report Status:Signed EXAM: [facility] Screening Digital EXAM DATE AND TIME: 11/02/2023 10:57 AM HISTORY: Screening. Sister had breast carcinoma age 64. COMPARISON: 10/28/22, 10/18/21, 05/28/20 TECHNIQUE: Bilateral digital breast tomosynthesis was performed in the CCand MLO projections. Computer aided detection with VisualDNA 3D 3.1was employed. TISSUE DENSITY: a. The breasts are almost entirely fatty. FINDINGS: No suspicious masses, grouped microcalcifications, or areas ofarchitectural distortion are seen. Vascular calcification is present. The skin is unremarkable. IMPRESSION: Stable mammographic appearance of the breasts. No evidence of malignancyis seen. A negative mammogram in the presence of a clinically suspicious palpable abnormality does not preclude the possibility of malignancy or alter the indications for biopsy. BI-RADS: Category 2: Benign RECOMMENDATION(S): 1: Routine screening mammogram BILATERAL in 1 year. Dictating Physician: ENMA MARCUM MD Electronically Signed by: ENMA MARCUM MD Dic Date/Time: 11/02/23 1602 Sign date/Time: 11/02/23 1603 us Renetta Mccoy MD IMG BI PROCEDURES Final Resul t from Last 3 Months or Most Recently Relevant to Health Maintenance Insurance [address] [place] [address] [employer] MEDICARE Care Teams Any Commodity Sales Deliverer Relationship Specialty Start Date End Date Renetta Mccoy MD [address] [facility][1] [address] [place], [place] PCP - General Internal Medicine 10/11/18
[2025-02-12 00:20] VITALS: BP 152/62; PULSE 62; RESP 16; TEMP 36.4; O2SAT 97
== END 2025-02-12 00:21 | disposition home or self-care (01) ==
PROVIDERS: Emergency Provider Emergency Medicine; PCP Internal Medicine
DX: M54.50 Low back pain, unspecified (principal); I49.8 Other specified cardiac arrhythmias; R07.81 Pleurodynia; Z79.899 Other long term (current) drug therapy
CPT/HCPCS: 36415; 71046; 71100; 80053; 84484; 85025; 85379; 93005; 99283; 99284

== ENCOUNTER → 2025-02-11 21:55 | Outpatient (BNV) | payer MEDICARE, SELFPAY | PROVIDERS: Emergency Provider Emergency Medicine; PCP Internal Medicine; Visit Provider Internal Medicine Cardiovascular Disease | DX: M54.9 Dorsalgia, unspecified (principal) | CPT/HCPCS: 93010 ==

== ENCOUNTER → 2025-02-11 22:14 | Outpatient (BNV) | payer MEDICARE, SELFPAY | PROVIDERS: PCP Internal Medicine; Visit Provider Radiology Diagnostic Radiology | DX: M54.6 Pain in thoracic spine (principal) | CPT/HCPCS: 71046; 71100 ==

== ENCOUNTER 2025-04-02 08:08 | Outpatient (REF) | payer MEDICARE, SELFPAY ==
--- OUTSIDE RECORDS SUMMARY | 2025-04-02 08:22 | XMS_ITS | Encounter Summary ---
Author Organization [facility] Address [address] [place] [address] Care Team Providers Care Political Advisor Name Role Phone Renetta Larsen MD Primary Care Provider [phone] Reason for Referral * Imaging - Authorized Specialty Diagnoses / Procedures Referred By Umeshac t Referred To Contact Radiology Diagnoses Esophageal dysphagia Procedures XR Esophagram Vu Hall MD [address] [address] Phone: tel: fax: [facility] Referral ID Status Reason Start Date Expiration Date V isits Requested Visits Authorized [id number] Authorized 02/26/2025 02/26/2026 1 1 Reason for Visit * Imaging - Authorized Specialty Diagnoses / Procedures Referred By Cristhian caal Referred To Contact Radiology Diagnoses Esophageal dysphagia Procedures XR Esophagram Vu Hall MD [address] [address] Phone: tel: fax: [facility] Referral ID Status Reason Start Date Expiration Date V isits Requested Visits Authorized [id number] Authorized 02/26/2025 02/26/2026 1 1 Encounter Details Date Type Department Care Team (Latest Contact Info) Description 04/01/2025 7:37 AM EDT - 04/01/2025 11:59 PM EDT Hospital Encounter [facility] Xray [address] [place] [id number] Esophageal dysphagia Discharge Disposition: Home or Self Care Social History Tobacco Use Types Packs/Day Years [...] Orientation Straight 01/27/2025 4: 16 PM EDT documented as of this encounter Medications at Time of Discharge aspirin 81 mg EC tablet Take 1 tablet (81 mg total) by mouth 1 (one) time each day. 11/30/2024 BERBERINE CHLORIDE ORAL Take by mouth. clotrimazole (LOTRIMIN) 1 % cream APPLY TO RASH TWICE A DAY 05/01/2024 coenzyme Q-10 30 mg capsule Take 400 mg by mouth 1 (one) time each day. docusate sodium (COLACE) 100 mg capsule Take 1 capsule (100 mg total) by mouth 2 (two) times a day. ezetimibe (ZETIA) 10 mg tablet Take 1 tablet (10 mg total) by mouth 1 (one) time each day. 11/25/2024 fluticasone propionate (FLONASE) 50 mcg/actuation nasal spray 2 Sprays by Each Nare route daily losartan-hydroCH LOROthiazide (HYZAAR) 100-25 mg per tablet Take 1 tablet by mouth 1 (one) time each day. 11/04/2024 metFORMIN (FORTAMET) 500 mg 24 hr tablet Take 1 tablet (500 mg total) by mouth 1 (one) time each day with dinner. rosuvastatin (CRESTOR) 10 mg tablet Take 2 tablets (20 mg total) by mouth 1 (one) time each day. 11/23/2024 triamcinolone (KENALOG) 0.1 % cream APPLY EXTERNALLY TO THE AFFECTED AREA 3 TIMES DAILY 09/12/2024 documented as of this encounter Discharge Disposition Disposition Code Departure Means Destination Home or Self Care documented in this encounter Plan of Treatment Upcoming Encounters Date Type Department Care Team (Late st Contact Info) Description 04/02/2025 10:00 AM EDT [facility]ointment [facility] [address] [address] documented as of this encounter Procedures Procedure Name Priority Date/Time Associated Diagnosis Comments XR ESOPHAGRAM Routine 04/01/2025 8:16 AM EDT Esophageal dysphagia documented in this encounter Results * XR Esophagram (04/01/2025 8:16 AM EDT) Anatomical Region Laterality Modality Head and Neck Radiographic Elizabeth ging 04/01/2025 11:0 0 AM EDT Impressions 04/01/2025 12:36 PM EDT 1. Severe esophageal dysmotility, also seen on prior upper GI imaging from 2019. 2. Equivocal tiny, sliding, axial hiatal hernia without visualized gastroesophageal reflux. -------- FINAL REPORT -------- Dictated By: Aleksandra Reid Dictated Date: 04/01/2025 11:00 ET Assigned Physician: Josesito Mahajan Reviewed and Electronically Signed By: Josesito Mahajan Signed Date: 04/01/2025 12:36 ET Workstation ID: [id number] Transcribed By: Self Edit Transcribed Date: 04/01/2025 11:12 ET Resident/PA/PUBLIC HEALTH NUTRITIONIST: Aleksandra Reid Narrative 04/01/2025 12:36 PM EDT FINDINGS: Double contrast esophagram performed. COMPARISON: No prior esophagram; upper GI imaging from November 15, 2018 reviewed HISTORY: Patient is a 74-year-old female with history of dysphagia Literature Teacher radiographs: 1 view chest radiograph demonstrates cardiac and mediastinal contours within normal limits. Lungs are clear bilaterally. Costophrenic angles are sharp. Moderate bony degenerative changes noted of the thoracolumbar spine. 1 view lateral soft tissue neck demonstrates no prevertebral soft tissue masses. Airway is widely patent. There is some increased density superimposing over the odontoid and lateral masses of C1 of uncertain if any significance. There are moderate bony degenerative changes noted of the cervical spine. Nuchal ligament is calcified. Effervescent crystals were administered orally. Thick and thin barium were administered orally under fluoroscopic control. Pharyngoesophagram: Rapid sequence imaging of the hypopharynx during swallowing demonstrates prompt initiation of swallowing. There is normal soft palate elevation and normal epiglottic motion. There is no laryngeal penetration or selene aspiration. There is no residual in the vallecula nor in the piriform sinuses. Thoracic esophagus: There is severe esophageal dysmotility. Normal distensibility and mucosal pattern without evidence of ulceration, stricture or mass formation. Hiatal hernia: Equivocal tiny, sliding, axial hiatal hernia. Reflux: Unable to elicit 13 mm Barium pill: Swallowed without difficulty. Prompt passage of pill from the esophagus into the stomach. DAP: 694.4 uGym^2 Procedure Note Josesito Mahajan MD - 04/01/2025 FINDINGS: Double contrast esophagram performed. COMPARISON: No prior esophagram; upper GI imaging from November 15, 2018reviewed HISTORY: Patient is a 74-year-old female with history of dysphagia Literature Teacher radiographs: 1 view chest radiograph demonstrates cardiac andmediastinal contours within normal limits. Lungs are clear bilaterally.Costophrenic angles are sharp. Moderate bony degenerative changes noted ofthe thoracolumbar spine. 1 view lateral soft tissue neck demonstrates no prevertebral soft tissuemasses. Airway is widely patent. There is some increased densitysuperimposing over the odontoid and lateral masses of C1 of uncertain ifany significance. There are moderate bony degenerative changes noted of the cervical spine.Nuchal ligament is calcified. Effervescent crystals were administered orally. Thick and thin barium wereadministered orally under fluoroscopic control. Pharyngoesophagram: Rapid sequence imaging of the hypopharynx duringswallowing demonstrates prompt initiation of swallowing. There is normalsoft palate elevation and normal epiglottic motion. There is no laryngealpenetration or selene aspiration. There is no residual in the vallecula norin the piriform sinuses. Thoracic esophagus: There is severe esophageal dysmotility. Normaldistensibility and mucosal pattern without evidence of ulceration,stricture or mass formation. Hiatal hernia: Equivocal tiny, sliding, axial hiatal hernia. Reflux: Unable to elicit 13 mm Barium pill: Swallowed without difficulty. Prompt passage of pillfrom the esophagus into the stomach. DAP: 694.4 uGym^2 IMPRESSION: 1. Severe esophageal dysmotility, also seen on prior upper GI imaging [id number]. 2. Equivocal tiny, sliding, axial hiatal hernia without visualizedgastroesophageal reflux. -------- FINAL REPORT -------- Dictated By: Aleksandra Reid Dictated Date: 04/01/2025 11:00 ET Assigned Physician: Josesito Mahajan Reviewed and Electronically Signed By: Josesito Mahajan Signed Date: 04/01/2025 12:36 ET Workstation ID: [id number] Transcribed By: Self Edit Transcribed Date: 04/01/2025 11:12 ET Resident/PA/PUBLIC HEALTH NUTRITIONIST: Aleksandra Reid Vu Hall MD IMG FLUOROSCOPY PROCEDURES Final Result documented in this encounter Visit Diagnoses Diagnosis Esophageal dysphagia Dysphagia, pharyngoesophageal phase Encounter for screening mammogram for breast cancer documented in this encounter Administered Medications Inactive Administered Medications - up to 3 most recent administrations Medication Order MAR Action Action Date Dose Rate Site barium sulfate (E-Z-DISK) tablet 700 mg 700 mg, oral, Once in imaging, Starting on Mon04/01/25 at 0800, For 1 dose, Swallow whole with 1-2 swallows of water just prior to fluoroscopic examination. Given 04/01/2025 8:16 AM EDT 700 mg barium sulfate (E-Z-HD) 98 % suspension 143 mL 143 mL (rounded from 142.8571 mL = 340 g), oral, Once in imaging, Starting on Mon04/01/25 at 0800, For 1 dose Given 04/01/2025 8:16 AM EDT 143 mL barium sulfate (E-Z-PAQUE) 96 % (w/w) suspension 183 mL 183 mL (rounded from 183.3333 mL = 176 g), oral, Once in imaging, Starting on Mon04/01/25 at 0759, For 1 dose Given 04/01/2025 8:17 AM EDT 183 mL sod bicarb-citric ac-simeth 2.21-1.53 gram/4 gram packet 1 packet 1 packet, oral, Once, On Mon04/01/25 at 0830, For 1 dose, Dissolve the contents of a half of a packet on the back of the tongue, wash down with 15 mL of water or juice and repeat with remaining contents. Given 04/01/2025 8:16 AM EDT 1 packet documented in this encounter Care Teams Political Advisor Relationship Specialty Start Date End Date Renetta Larsen MD [address] [facility] [address] [place] PCP - General Internal Medicine 10/11/18 documented as of this encounter
[2025-04-02 11:38] LABS: Estimated Average Glucose 134 mg/dL; Hemoglobin A1C 147.6028 umol/L; Hemoglobin A1c % 6.3 % (<6.0); Total Hemoglobin (HGBA1C) 3233.2584 umol/L
[2025-04-02 11:51] LABS: Alanine Aminotransferase 21 U/L (0-31); Albumin Level 4.4 g/dL (3.5-5.0); Alkaline Phosphatase 59 U/L (39-117); Anion Gap 11 (12-20); Aspartate Amino Transferase 24 U/L (5-31); Bilirubin Total 1.2 mg/dL (0.0-1.0); Blood Urea Nitrogen 13 mg/dL (9-16); Calcium 9.4 mg/dL (8.4-10.2); Carbon Dioxide 31 mmol/L (22-29); Chloride 105 mmol/L (96-108); Cholesterol 107 mg/dL (<200); Estimated Glomerular Filt Rate > 60; Glucose Random 118 mg/dL (60-115); HDL Cholesterol 43 mg/dL (>40); LDL Cholesterol Calculated 49 mg/dL (<100); Potassium 3.8 mmol/L (3.3-5.1); Sodium 143 mmol/L (135-145); Total Protein 7.1 g/dL (6.5-8.0); Triglycerides 78 mg/dL (<150)
[2025-04-02 12:09] LABS: Folate 10.9 ng/mL (> or = 4.0); Vitamin B12 471 pg/mL (200-900)
== END 2025-04-02 08:09 | disposition home or self-care (01) ==
LOC: HO.10HDL 08:08
PROVIDERS: Visit Provider Internal Medicine
DX: E11.9 Type 2 diabetes mellitus without complications (principal); E78.00 Pure hypercholesterolemia, unspecified; I10 Essential (primary) hypertension; R41.3 Other amnesia; Z86.0101 Personal history of adenomatous and serrated colon polyps
CPT/HCPCS: 36415; 80053; 80061; 82607; 82746; 83036

== ENCOUNTER 2025-08-05 10:05 | Outpatient (REF) | payer MEDICARE, SELFPAY ==
--- OUTSIDE RECORDS SUMMARY | 2025-08-05 11:11 | XMS_ITS | Encounter Summary ---
Author Organization [facility] Address [address] [place] [address] Care Team Providers Care Net Applications Developer Name Role Phone Renetta Larsen MD Primary Care Provider [phone] Encounter Details Date Type Department Care Team (Late st Contact Info) Description 04/07/2025 Lab Requisition [facility] - Main Lab [address] [facility] [place] [address] Renetta Larsen MD [address] [place] [address] [place] [id number] Type 2 diabetes mellitus without complications ([facility] V24, [facility] V28) Social History Tobacco Use Types Packs/Day Years Used Date Smoking Tobacco: Former Cigarettes Q uit: 01/20/1982 Smokeless Tobacco: Never Alcohol Use Standard Drinks/Week Comments No 0 (1 standard drink = 0.6 oz pur e alcohol) Comments No Sex and Gender Information Value Date Recorded Sex Assigned at Female 01/27/2025 4:12 PM EDT Legal Sex Female 2:17 AM EST Gender Identity Female 01/27/2025 4:12 PM EDT Sexual Orientation Straight 01/27/2025 4: 16 PM EDT documented as of this encounter Plan of Treatment Scheduled Orders Name Type Priority Associated Diagnoses Orde r Schedule Comprehensive metabolic panel Lab Routine Type 2 diabetes mellitus without complications ([facility] V24, [facility] V28) Ordered: 04/07/2025 Hemoglobin A1c Lab Routine Type 2 diabetes mellitus without complications ([facility] V24, [facility] V28) Ordered: 04/07/2025 documented as of this encounter Visit Diagnoses Diagnosis Type 2 diabetes mellitus without complications ([facility] V24, [facility] V28) documented in this encounter Care Teams Net Applications Developer Relationship Specialty Start Date End Date Renetta Larsen MD [address] [facility] [address] [place], [place] PCP - General Internal Medicine 10/11/18 documented as of this encounter
--- OUTSIDE RECORDS SUMMARY | 2025-08-05 11:11 | XMS_ITS | Clinical Summary ---
Author Organization [facility] [address] [facility] Address [address] [place] [address] Phone Care Team Providers Care Joint Maker Machine Name Role Phone Renetta Larsen MD Primary Care Provider [phone] Allergies Active Allergy Reactions Criticality Noted Date [...] Schatzki's ring 02/12/2019 DM hyperosmolarity type II (CMS/HCC V24, CMS/HCC V28) 12/27/2018 Dysphagia 12/27/2018 Surgical History Surgery Date Site/Laterality Comments OTHER SURGICAL HISTORY PROCEDURE: HYSTEROSCOPY, DIAGNOSTIC HYSTERECTOMY Medical History Medical History Date Comments HTN (hypertension) DX:HTN (hyper tension) Hyperlipemia DX:Hyperlipemia Diabetes (CMS/HCC V24, CMS/HCC V28) DX:Diabetes (HCC) Migraines DX:Migraines Fibroid tumor DX:Fibroid tumor ; COMMENT: with removal Family History Medical History Relation Name Comments Hypertension Father Diabetes Mother Hypertension Mother Other: hyperlipidemia Mother Breast cancer Sister Relation Name Status Comments Father Mother Sister Social History Tobacco Use Types Packs/Day Years [...] 01/27/2025 4: 16 PM EDT Obstetrics History Para Term AB IAB SAB Ectopic Multiple Livin g Live Births 4 Last Filed Vital Signs Vital Sign Reading Time Taken Comments Blood Pressure 122/72 01/22/2025 2:17 PM EDT Pulse 70 01/22/2025 2:17 PM EDT Temperature - - Respiratory Rate - - Oxygen Saturation - - Inhaled Oxygen Concentration - - Weight 78.5 kg (173 lb) 04/02/2025 9:50 AM EDT Height 157.5 cm (5' 2 ) 04/02/2025 9:50 AM EDT Body Mass Index 31.64 04/02/2025 9:50 AM EDT Plan of Treatment Health Maintenance Due Date Last Done Comments Diabetes: Annual GFR (Glomerular Filtration Rate) 1948 Diabetes: Annual Foot Exam 1958 Diabetes: Annual Retina Eye Exam 1958 DTaP,Tdap,and Td Vaccines (1 - Tdap) 1967 Zoster Vaccines (1 of 2) 1998 Cholesterol Screening (Lipid Panel) 10/15/2022 Falls Risk Assessment 10/15/2022 Hepatitis C Screening 10/15/2022 Medicare Annual Wellness Visit 10/15/2022 Osteoporosis Screening (Bone Density Screening) 10/15/2022 Social Influencers of Health Screening 10/15/2022 Diabetes: Annual Urine Albumin-Creatinine Ratio (uACR) 10/21/2022 Diabetes: Blood Sugar Control Test (HGBA1C) 10/21/2022 RSV Immunization Adult Patients (1 - 1-dose 75+ series) 2023 Depression Screening 11/06/2024 COVID-19 Vaccine ( season) 2025 09/20/2021, 05/11/2021, 02/10/2021 Influenza Vaccine (#1) 2025 08/15/2023, 2020 Pneumococcal Vaccine: 50+ Years Completed 11/28/2018, 04/27/2017 Breast Cancer Screening Discontinued 04/02/20, 11/02/2023, 10/28/2022, Additional history exists HIB Vaccines Aged Out [...] Procedure Name Priority Date/Time Associated Diagnosis Comments MG MAMMO DIGITAL SCREENING W LAWSON BILAT Routine 04/02/2025 10:02 AM EDT Encounter for screening mammogram for breast cancer from Last 3 Months or Most Recently Relevant to Health Maintenance Results * MG Mammo Digital Screening w Lawson bilat (04/02/2025 10:02 AM EDT) Anatomical Region Laterality Modality Breast Bilateral Mammography 04/02/2025 3:57 PM EDT Impressions 04/02/2025 4:02 PM EDT No mammographic evidence of malignancy. No suspicious interval change. A negative mammogram in the presence of a clinically suspicious palpable abnormality does not preclude the possibility of malignancy or alter the indications for biopsy. ASSESSMENT: BI-RADS 1: NEGATIVE RECOMMENDATION(S): 1: Routine screening mammogram BILATERAL in 1 year. [facility] location[facility] [address], [address] -------- FINAL REPORT -------- Dictated By: Josesito Mahajan Dictated Date: 04/02/2025 15:57 ET Assigned Physician: Josesito Mahajan Reviewed and Electronically Signed By: Josesito Mahajan Signed Date: 04/02/2025 16:02 ET Workstation ID: [id number] Transcribed By: Self Edit Transcribed Date: 04/02/2025 15:57 ET Narrative 04/02/2025 4:02 PM EDT EXAM: SCREENING MAMMOGRAPHY, BILATERAL HISTORY: SCREENING. Family history of breast cancer; sister diagnosed at age 60. COMPARISON: 11/02/23, 10/28/22, 10/18/21, 05/28/20 TECHNIQUE: Synthesized CC and MLO projections of each breast. Tomosynthesis of each breast in the CC and MLO projections. ADDITIONAL IMAGING: None Computer-aided detection was employed with the [employer] AI 3-D. TISSUE DENSITY: There are scattered areas of fibroglandular density. (BI-RADS category B) FINDINGS: RIGHT BREAST: No suspicious mass. No suspicious calcification. No distortion. No additional suspicious right breast findings LEFT BREAST: No suspicious mass. No suspicious calcification. No distortion. No additional suspicious left breast findings Procedure Note Josesito Mahajan MD - 04/02/2025 EXAM: SCREENING MAMMOGRAPHY, BILATERAL HISTORY: SCREENING. Family history of breast cancer; sister diagnosed atage 60. COMPARISON: 11/02/23, 10/28/22, 10/18/21, 05/28/20 TECHNIQUE: Synthesized CC and MLO projections of each breast.Tomosynthesis of each breast in the CC and MLO projections. ADDITIONAL IMAGING: None Computer-aided detection was employed with the [employer] AI 3-D. TISSUE DENSITY: There are scattered areas of fibroglandular density.(BI-RADS category B) FINDINGS: RIGHT BREAST: No suspicious mass. No suspicious calcification. No distortion. Noadditional suspicious right breast findings LEFT BREAST: No suspicious mass. No suspicious calcification. No distortion. Noadditional suspicious left breast findings IMPRESSION: No mammographic evidence of malignancy. No suspicious interval change. A negative mammogram in the presence of a clinically suspicious palpableabnormality does not preclude the possibility of malignancy or alter theindications for biopsy. ASSESSMENT: BI-RADS 1: NEGATIVE RECOMMENDATION(S): 1: Routine screening mammogram BILATERAL in 1 year. [facility] location[facility] at [address], [address] -------- FINAL REPORT -------- Dictated By: Josesito Mahajan Dictated Date: 04/02/2025 15:57 ET Assigned Physician: Josesito Mahajan Reviewed and Electronically Signed By: Josesito Mahajan Signed Date: 04/02/2025 16:02 ET Workstation ID: [id number] Transcribed By: Self Edit Transcribed Date: 04/02/2025 15:57 ET us Self Referral Sppl IMG BI PROCEDURES Final Resul t from Last 3 Months or Most Recently Relevant to Health Maintenance Insurance [address] [place] [phone] [employer] MEDICARE Care Teams Joint Maker Machine Relationship Specialty Start Date End Date Renetta Larsen MD [address] [facility] [address] [place], [place] PCP - General Internal Medicine 10/11/18
[2025-08-05 11:48] LABS: Hemoglobin A1C 158.8206 umol/L; Total Hemoglobin (HGBA1C) 3317.3160 umol/L
[2025-08-05 12:03] LABS: Alanine Aminotransferase 27 U/L (0-31); Albumin Level 4.7 g/dL (3.5-5.0); Alkaline Phosphatase 68 U/L (39-117); Anion Gap 11 (12-20); Aspartate Amino Transferase 28 U/L (5-31); Blood Urea Nitrogen 12 mg/dL (9-16); Calcium 9.7 mg/dL (8.4-10.2); Carbon Dioxide 31 mmol/L (22-29); Chloride 105 mmol/L (96-108); Estimated Glomerular Filt Rate > 60; Potassium 4.0 mmol/L (3.3-5.1); Sodium 143 mmol/L (135-145); Total Protein 7.3 g/dL (6.5-8.0)
== END 2025-08-05 10:06 | disposition home or self-care (01) ==
LOC: HO.10HDL 10:05
PROVIDERS: Visit Provider Internal Medicine
DX: E11.9 Type 2 diabetes mellitus without complications (principal)
CPT/HCPCS: 36415; 80053; 83036

== ENCOUNTER 2025-09-26 10:32 | Emergency (ER) | payer MEDICARE, SELFPAY ==
--- NOTE | ~2025-09-26 | XR_ITS ---
EXAMINATION: XR KNEE, RIGHT CLINICAL INFORMATION: pain. nki COMPARISON: None available. TECHNIQUE: Two views of the right knee. FINDINGS: Mild medial compartment joint space narrowing. Mild lateral compartment marginal spur. Limited evaluation of the patellofemoral compartment on the lateral view, question joint space narrowing. No visible acute fracture, dislocation or suspicious bony lesion. Superior patellar insertional enthesopathy. Small suprapatellar joint fluid. No suspicious soft tissue findings. XR/XR knee RT 2V IMPRESSION: Tricompartment osteoarthritis. No radiographic evidence of acute osseous findings. Electronically signed by: Roberto Cavanaugh MD 09/26/2025 11:29 AM EST
--- NOTE | ~2025-09-26 | US_ITS ---
EXAMINATION: US TRIPLEX LOWER EXTREMITY, RIGHT CLINICAL INFORMATION: Leg pain COMPARISON: None available. TECHNIQUE: Color-flow triplex imaging with spectral analysis and compression Doppler were performed on the right lower extremity. FINDINGS: Respiratory variation, normal compression and augmented flow are noted throughout the right lower extremity. The visualized common femoral vein, superficial femoral vein, profunda femoral vein, popliteal vein and midcalf peroneal and posterior tibial venous segments show no evidence of deep venous thrombosis. Popliteal fossa cyst measuring 6.5 x 1.2 x 2.4 cm Right groin lymph node measuring 0.8 cm in short axis (1.6 x 0.8 x 0.9 cm). US/US venous duplex LE RT IMPRESSION: No evidence of deep venous thrombosis involving the right lower extremity. Popliteal fossa cyst measuring 6.5 cm. Electronically signed by: Roberto Cavanaugh MD 09/26/2025 02:09 PM [facility]
[2025-09-26 11:11] VITALS: BP 144/69; PULSE 81; RESP 18; TEMP 36.2; O2SAT 97; BMI 32.3
--- NOTE | 2025-09-26 11:41 | ED.GENADULT ---
HPI - General Adult General Chief complaint: Extremity Injury, Lower Stated complaint: leg pain Time Seen by Provider: 09/26/25 11:41 History of Present Illness ED Provider: Gabriela TEE narrative: The patient is a very pleasant 74-year-old woman with a history of type 2 diabetes who presents with the about 10 days of worsening right knee pain. She has been using a cane. She denies any injury. No fevers. She uses acetaminophen and ibuprofen but only gets temporary relief. No chest pain or shortness of breath. No skin changes. Related Data Home Medications ?Medication ?Instructions ?Recorded ?Confirmed losartan 50 mg-hydrochlorothiazide 1 tab PO DAILY 05/18/21 08/20/21 12.5 mg tablet mecobalamin (vitamin B12) 1,000 1,000 mcg PO DAILY 05/18/21 08/20/21 mcg chewable tablet (B12 Active) metformin 500 mg tablet,extended 500 mg PO BID 05/18/21 08/20/21 release 24 hr omega-3 fatty acids 1,000 mg 1,000 mg PO DAILY 05/18/21 08/20/21 capsule cholecalciferol (vitamin D3) 25 25 mcg PO DAILY 08/20/21 08/20/21 mcg (1,000 unit) capsule nortriptyline 25 mg capsule 25 mg PO DAILY 08/20/21 08/20/21 Previous Rx's ?Medication ?Instructions ?Recorded cyclobenzaprine 10 mg tablet 10 mg PO TID PRN muscle spasm #10 02/11/25 tabs ibuprofen 600 mg tablet 600 mg PO Q8H PRN pain #14 tabs 02/11/25 acetaminophen 500 mg capsule 1,000 mg (2 x 500 mg) PO Q8H PRN 09/26/25 fever or pain #14 caps diclofenac sodium 1 % topical gel 2 g topical QID PRN right knee 09/26/25 (Arthritis Pain (diclofenac)) pain #100 grams ibuprofen 400 mg tablet 400 mg PO Q6H PRN pain #14 tabs 09/26/25 oxycodone 5 mg tablet 2.5 mg (1/2 x 5 mg) PO Q4H PRN 09/26/25 pain #14 tabs Allergies Allergy/AdvReac Type Severity Reaction Status Date / Time atorvastatin AdvReac Unknown myalgia Verified 09/26/25 11:13 atorvastatin Allergy Unknown myalgia Uncoded 02/11/25 21:35 metformin Allergy Unknown diarrhea Uncoded 02/11/25 21:35 Review of Systems Review of Systems: Yes all other systems are reviewed and are negative [facility] Past Medical History Medical History Hard of hearing Seasonal allergies High cholesterol Schatzki's ring Hiatal hernia GERD (gastroesophageal reflux disease) HTN (hypertension) Social History Social History Smoked in Last 30 Days: No Use of substances other than those prescribed or required for medical reasons: No Advance Directives: No Advance Directives Information Provided: Yes Physical Exam ED Vital Signs: Vital Signs - 24 hr 09/26/25 11:11 09/26/25 14:52 09/26/25 15:42 Temperature 97.2 F 97.9 F 97.9 F Pulse Rate 81 60 60 Respiratory Rate 18 16 16 Blood Pressure 144/69 H 136/44 L 136/44 L Pulse Oximetry 97 96 96 Oxygen Delivery Method Room Air Room Air Room Air BMI result Body Mass Index 32.3 Const Other: The patient is awake, alert, pleasant, cooperative. She does not appear acutely ill. Orientation/consciousness: patient oriented x3 HENMT Other: The face is symmetrical. Mucous membranes moist. Eyes General: appearance normal, both eyes and all related structures Neck Neck: Yes normal visual inspection and Yes full ROM Resp Effort & Inspection: normal respiratory effort Auscultation: clear to auscultation bilaterally Cardio Rate: regular rate Rhythm: regular rhythm Heart sounds: S1 normal heart sound present and S2 normal heart sound present GI Other: Abdomen is soft and nontender Skin Other: The skin of the leg in the knee were dry and unremarkable. No warmth or erythema. No edema. Neuro General: patient oriented x3, moves all extremities, no focal motor deficits and CN's II-XI intact bilaterally Extrem Other: No obvious abnormality was apparent on inspection to the right knee or the right leg generally. There was no soft tissue swelling. No erythema. No particular warmth. There is some generalized tenderness around the knee but no focal tenderness. The calf seems reasonably supple although there was some mild calf tenderness. No edema of the ankle. Feet are well-perfused. I can put the ankle, knee, and hip through a good range of motion without significant discomfort. Medications Administered Discontinued Medications Generic Name Dose Route Start Last Admin Trade Name Jennifer PRN Reason Stop Dose Admin Ketorolac Tromethamine 20 mg 09/26/25 14:54 09/26/25 15:42 Ketorolac Tromethamine 30 Mg/Ml Vial IM 09/26/25 14:55 20 mg ONCE ONE Administration Medical Decision Making Medical Decision Making [facility] Narrative: The patient is a pleasant 74-year-old who presents with about 10 days of worsening right knee pain. This was not associated with any injury or activity. There is no associated fever. She has been using ibuprofen with some transient relief. She has started using a cane. She has a fairly benign physical exam. An x-ray of the knee suggests tricompartment arthritis. An ultrasound of the leg suggests a popliteal cyst. CBC and BMP are unremarkable. she is a type 2 diabetic but she has preserved kidney function. Overall I suspect that her pain is of an arthritic nature. She was given a knee immobilizer. She should use acetaminophen as needed for pain. Additionally ibuprofen occasionally. I also sent a prescription for Voltaren gel although I am not sure that her insurance will cover this. Lastly a small prescription for oxycodone if absolutely necessary. She should follow up with the Orthopedic office and her PCP for further management of the pain syndrome. Lab Data 09/26/25 14:17 09/26/25 14:17 Labs: Lab Results 09/26/25 Range/Units 14:17 WBC 7.6 (4.8-10.8) X10*3/uL RBC 4.27 (4.20-5.50) X10*6/uL Hgb 11.7 L (12.0-16.0) g/dl Hct 36.1 L (37.0-47.0) % MCV 84.5 (80.0-98.0) fL MCH 27.4 (27.0-33.0) pg MCHC 32.4 (31.0-35.0) g/dl RDW 12.4 (11.0-16.0) % Plt Count 195 (160-400) X10*3/uL MPV 10.9 (9.4-12.3) fL Immature Gran % (Auto) 0.3 (0.0-0.4) % Neut % (Auto) 56.9 (45-73) % Lymph % (Auto) 34.8 (20-40) % [place] % (Auto) 7.1 (2-11) % Eos % (Auto) 0.5 (0-4) % Baso % (Auto) 0.4 (0-2) % Lymph # (Auto) 2.7 (1.2-4.9) X10*3/uL [place] # (Auto) 0.5 (0.1-1.2) X10*3/uL Eos # (Auto) 0.0 (0.0-0.4) X10*3/uL Baso # (Auto) 0.0 (0.0-0.2) X10*3/uL Abs Immat Gran (auto) 0.02 (0.00-0.03) X10*3/uL Absolute Neuts (auto) 4.3 (2.0-8.3) x10*3/uL Absolute Nucleated RBC 0.000 (0.0-0.012) X10*3/uL Nucleated RBC % (auto) 0.0 (0.0-0.2) /100WBC Sodium 142 (135-145) mmol/L Potassium 4.0 (3.3-5.1) mmol/L Chloride 108 (96-108) mmol/L Carbon Dioxide 27 (22-29) mmol/L Anion Gap 11 L (12-20) BUN 14 (9-16) mg/dL Creatinine 0.60 (0.5-1.4) mg/dL Estim Creat Clear Calc 78.1 Estimated GFR > 60 Random Glucose 93 (60-115) mg/dL Calcium 9.2 (8.4-10.2) mg/dL Discharge Plan Discharge Clinical Impression: Acute pain of right knee, Osteoarthritis of right knee, Synovial cyst of right popliteal space Patient Disposition: Home, Self-Care Instructions: Osteoarthritis (ED), [place] Cyst (ED), Knee Pain (ED) Additional Instructions: Your testing shows that you have some arthritis in your right knee. You also have a finding called a popliteal cyst on your right knee. This is often seen in cases of arthritis. This is not dangerous but is a marker of arthritis. Please use the knee brace provided if you feel that it is helpful. Use this when you are walking around to stabilize the knee. For the most part you should try to rest and take it easy and keep the right leg elevated. You may ice the knee. You may use acetaminophen (Tylenol) as needed for pain. I have sent a prescription for acetaminophen for you but I do not know if your insurance will cover it. Additionally you may use ibuprofen for pain although you should not use this too much. I have sent a prescription for a topical gel which can be helpful for knee arthritis although I do not know if your insurance will cover this medication. Lastly I sent a prescription for oxycodone as well which you should only use when absolutely necessary. Please contact the orthopedic office for further recommendations regarding your knee. Also follow up with your regular doctor. Return to the emergency room if significantly worse. Prescriptions: New acetaminophen 500 mg capsule 1,000 mg PO Q8H PRN (Reason: fever or pain) Qty: 14 0RF ibuprofen 400 mg tablet 400 mg PO Q6H PRN (Reason: pain) Qty: 14 0RF diclofenac sodium [Arthritis Pain (diclofenac)] 1 % gel 2 g topical QID PRN (Reason: right knee pain) Qty: 100 0RF Rx Instructions: apply to right elbow oxycodone 5 mg tablet 2.5 mg PO Q4H PRN (Reason: pain) Qty: 14 0RF Rx Instructions: Partial Fill upon patient request. No Action ibuprofen 600 mg tablet 600 mg PO Q8H PRN (Reason: pain) Qty: 14 0RF cyclobenzaprine 10 mg tablet 10 mg PO TID PRN (Reason: muscle spasm) Qty: 10 0RF cholecalciferol (vitamin D3) 25 mcg (1,000 unit) capsule 25 mcg PO DAILY nortriptyline 25 mg capsule 25 mg PO DAILY metformin 500 mg tablet extended release 24 hr 500 mg PO BID omega-3 fatty acids 1,000 mg capsule 1,000 mg PO DAILY B12 Active 1,000 mcg tablet,chewable 1,000 mcg PO DAILY losartan-hydrochlorothiazide 50-12.5 mg tablet 1 tab PO DAILY Referrals: [facility] [Provider Group] Renetta Larsen MD [Primary Care Provider, Internal Medicine] Interventions: ED Discharge Assessment Last Done: 09/26/25 15:42 Discharge Date/Time: 09/26/25 15:43 Print Language: Japanese
--- OUTSIDE RECORDS SUMMARY | 2025-09-26 12:35 | XMS_ITS | Encounter Summary ---
Author Organization [facility] Address [address] [place] [address] Care Team Providers Care Research And Development Engineer Name Role Phone Renetta Larsen MD Primary Care Provider [phone] Encounter Details Date Type Department Care Team (Late st Contact Info) Description 04/07/[address] [facility] - Main Lab [address] [facility] [place] [address] Renetta Larsen MD [address] [place] [address] [place] [address] Type 2 diabetes mellitus without complications ([facility] V24, [facility] V28) Social History Tobacco Use Types Packs/Day Years Used Date Smoking Tobacco: Former Cigarettes 0 Q uit: 01/20/1982 Smokeless Tobacco: Never Alcohol [...] Routine Type 2 diabetes mellitus without complications ([facility]/HCC V24, [facility] V28) Ordered: 04/07/2025 Hemoglobin A1c Lab Routine Type 2 diabetes mellitus without complications ([facility] V24, [facility] V28) Ordered: 04/07/2025 documented as of this encounter Visit Diagnoses Diagnosis Type 2 diabetes mellitus without complications ([facility] V24, [facility] V28) documented in this encounter Care Teams Research And Development Engineer Relationship Specialty Start Date End Date Renetta Larsen MD [address] [facility] [address] [place] PCP - General Internal Medicine 10/11/18 documented as of this encounter
--- OUTSIDE RECORDS SUMMARY | 2025-09-26 12:36 | XMS_ITS | Clinical Summary ---
Author Organization [facility] [address] [facility] Address [address] [place] [address] Phone Care Team Providers Care Membership Manager Name Role Phone Renetta Larsen MD Primary Care Provider [phone] Allergies Active Allergy Reactions Criticality Noted Date [...] 02/12/2019 DM hyperosmolarity type II (CMS/HCC V24, CMS/[facility] V28) 12/27/2018 Dysphagia 12/27/2018 Surgical History Surgery [...] year. Mammography location: [facility] [address], [address] -------- FINAL REPORT -------- Dictated By: Josesito Mahajan Dictated Date: 04/02/2025 15:57 ET Assigned Physician: Josesito Mahajan Reviewed and Electronically Signed By: Josesito Mahajan Signed Date: 04/02/2025 16:02 ET Workstation ID: [id number] Transcribed By: Self Edit Transcribed Date: 04/02/2025 [...] Computer-aided detection was employed with the iCAD Liquid5 AI 3-D. TISSUE DENSITY: There are scattered [...] Computer-aided detection was employed with the iCAD ProFound AI 3-D. TISSUE DENSITY: There are scattered [...] year. Mammography location: [facility] at [address], [address] -------- FINAL REPORT -------- Dictated By: Josesito Mahajan Dictated Date: 04/02/2025 15:57 ET Assigned Physician: Josesito Mahajan Reviewed and Electronically Signed By: Josesito Mahajan Signed Date: 04/02/2025 16:02 ET Workstation ID: [id number] Transcribed By: Self Edit Transcribed Date: 04/02/2025 15:57 ET us Self Referral Sppl IMG BI PROCEDURES Final Resul t from Last 3 Months or Most Recently Relevant to Health Maintenance Insurance [address] [place] [address] [employer] Care Teams Membership Manager Relationship Specialty Start Date End Date Renetta Larsen MD [address] [facility] [address] [place], [place] PCP - General Internal Medicine 10/11/18
[2025-09-26 14:21] LABS: MANUAL DIFF FLAG NO
[2025-09-26 14:28] LABS: Hematocrit 36.1 % (37.0-47.0); Hemoglobin 11.7 g/dl (12.0-16.0); Imm Gran Abs Auto 0.02 X10*3/uL (0.00-0.03); Imm Gran Pct Auto 0.3 % (0.0-0.4); Lymphocytes Absolute Auto 2.7 X10*3/uL (1.2-4.9); Mean Corpuscular HGB Conc 32.4 g/dl (31.0-35.0); Mean Corpuscular Hemoglobin 27.4 pg (27.0-33.0); Mean Corpuscular Volume 84.5 fL (80.0-98.0); NRBC Abs Auto 0.000 X10*3/uL (0.0-0.012); NRBC Pct Auto 0.0 /100WBC (0.0-0.2); Platelet Count 195 X10*3/uL (160-400); Red Blood Count 4.27 X10*6/uL (4.20-5.50); White Blood Count 7.6 X10*3/uL (4.8-10.8)
[2025-09-26 14:40] LABS: Anion Gap 11 (12-20); Blood Urea Nitrogen 14 mg/dL (9-16); Calcium 9.2 mg/dL (8.4-10.2); Carbon Dioxide 27 mmol/L (22-29); Chloride 108 mmol/L (96-108); Creatinine Clr Calc Pharmacy 78.1; Estimated Glomerular Filt Rate > 60; Potassium 4.0 mmol/L (3.3-5.1); Sodium 142 mmol/L (135-145)
[2025-09-26 14:52] VITALS: BP 136/44; PULSE 60; RESP 16; TEMP 36.6; O2SAT 96
[2025-09-26 15:42] VITALS: BP 136/44; PULSE 60; RESP 16; TEMP 36.6; O2SAT 96
== END 2025-09-26 15:43 | disposition home or self-care (01) ==
PROVIDERS: Emergency Provider Emergency Medicine; PCP Internal Medicine
DX: M71.21 Synovial cyst of popliteal space [Baker], right knee (principal); M17.11 Unilateral primary osteoarthritis, right knee; M25.561 Pain in right knee; R60.0 Localized edema; Z79.899 Other long term (current) drug therapy
CPT/HCPCS: 36415; 73560; 80048; 85025; 93971; 96372; 99284; J1885

== ENCOUNTER → 2025-09-26 11:24 | Outpatient (BNV) | payer MEDICARE, SELFPAY | PROVIDERS: Emergency Provider Emergency Medicine; PCP Internal Medicine; Visit Provider Radiology Diagnostic Ultrasound | DX: M79.604 Pain in right leg (principal); M17.11 Unilateral primary osteoarthritis, right knee | CPT/HCPCS: 73560; 93971 ==